=== PATIENT | female | born 1940 | race Caucasian/White ===

== ENCOUNTER 2023-05-31 19:47 | Emergency (ER) | payer MEDICARE, OTHER, SELFPAY ==
[2023-05-31 19:49] VITALS: BP 188/114; BMI 23.3
[2023-05-31 20:26] VITALS: BMI 23.7
[2023-05-31 20:31] VITALS: BP 176/75
[2023-05-31] MEDS: GlucaGen 1 MG IV (20:47)
--- NOTE | 2023-05-31 20:51 | ED.GENMED ---
History of Present Illness
General
Chief Complaint: Foreign Body Ingestion
Source: patient
Exam Limitations: none
Time Seen by Provider: 05/31/23 20:20
Travel History
Have you had any contact with someone who has COVID-19?: No
Do you have any symptoms of coronavirus? Fever > 100 degrees, chills, cough, shortness of breath, sore throat, loss of taste or smell, muscle aches, or headache?: No
History of Present Illness
History of Present Illness:
This is a 82 year old female that comes in with c/o an apple stuck in her throat. States that she was feeling good and had a good day. States that she was going to scrub her floor and she had a piece of apple. States that the apple is stuck in her
throat. States that she tried to drink water and it came right back out. States that she feels that the apple is stuck. States that she is nauseated. States that this has happened to her before and she went to the GI lab. Denies any fever, chills,
chest pain, SOB, abd pain, diarrhea, headache, dizziness.
Past History
Past History
ED Past Medical History: CVA (Left sided weakness, ), HTN, Hypercholesterolemia, [place], Hypothyroidism and Other (Diverticulitis, Ulcers, Iron Def anemia, )
ED Past Surgical History: Gynecological (Hysterectomy, ), Tonsilectomy and Other (Thyroidectomy)
Social History
Tobacco: Non-smoker
Alcohol: Occasional
Drug: None
Personal:
Living: alone
Review of Systems
Review of Systems
All Other Systems: ROS reviewed and negative except as documented in HPI and ROS
Constitutional: Reports no symptoms; Denies fever or chills
EENT: Reports other (apple stuck in her throat. )
Respiratory: Reports no symptoms
Cardiac: Reports no symptoms
ABD/GI: Reports vomiting (Brought water back up); Denies abdominal pain or diarrhea
: Reports no symptoms
Musculoskeletal: Reports no symptoms
Skin: Reports no symptoms
Neurological: Reports no symptoms; Denies dizzy or headache
Psychiatric: Reports no symptoms
Phy Exam
General Physical Exam
General Presentation: no apparent distress
General age: appears stated age
General Skin: warm and dry
General Habitus: elderly
General Mental: alert
General Hydration: dry mucous membranes
ENT Exam
ENT Exam: TM's normal, pharynx normal and neck supple
Eye Exam
Eye Exam: EOMI
Cardiovascular Exam
Cardiovascular Exam: regular rate/rhythm and normal peripheral pulses
Pulmonary Exam
Pulmonary Exam: lungs clear, no respiratory distress, no rales, chest non tender, no crackles, no rhonchi, no wheezing and no cough
Gastrointestinal Exam
Gastrointestinal Exam: normal bowel sounds, non tender, soft, no organomegaly, no pulsatile mass and non distended
Musculoskeletal Exam
Musculoskeletal Exam: full ROM and no edema
Skin Exam
Skin Exam: normal color, warm/dry, no rash and no petechia
Course
Orders/Labs/Results
Orders:
Orders
05/31/23 20:37
Glucagon [GlucaGen] 1 mg IV NOW STA
Vital Signs
Initial and Last Documented VS:
Initial Vital Signs
Temp Pulse Resp BP Pulse Ox
98 F 84 16 188/114 98
05/31/23 19:49 05/31/23 19:49 05/31/23 19:49 05/31/23 19:49 05/31/23 19:49
Last Documented Vital Signs
Temp Pulse Resp BP Pulse Ox
98 F 84 16 176/75 98
05/31/23 19:49 05/31/23 19:49 05/31/23 19:49 05/31/23 20:31 05/31/23 19:49
MDM/Problems Addressed
Differential Diagnosis Includes:
Esophageal irritation, Food impaction
MDM/Problems Addressed:
This is a 82 year old female that comes in with c/o feeling like there is an apple stuck in her throat. States that this has happened before and had to go to the GI lab.
Will try Glucagon at this time as patient is swallowing her saliva and water. If needed will call in the GI specialist.
Back into see patient. Patient states that she thinks it went down she is feeling better. Patient is tolerating water and is swallowing her own saliva. Will discharge home.
Chronic conditions affecting care:
Esophageal stretched in the past
Acute Exacerbation and/or Progression of Chronic Illness:
Esophageal stricture
*Pulse Oximetry
Patient hypoxic: no
*EKG
Interpreted by ED Provider?: NA
Rate: EKG- N/A
*Product Handler Interpretation
Rate: Product Handler- N/A
*Critical Care Note
Total Time (30-74mins, 75-104mins- exclusive of procedures): Not Applicable
ED Attending Note
-
Portions of this chart may have been created with voice recognition software.� Occasional wrong word or��sound alike� substitutions may have occurred due to the inherent limitations of voice recognition software.
Discharge Plan
Departure
Patient Disposition: Home (Routine Discharge)
Date of Disposition: 05/31/23
Time of Disposition: 21:55
Patient with high blood pressure during this ER visit?: Yes
Condition: Good
Covid-19: Not Applicable
Discharge Problem:
Food impaction of esophagus
Instructions: BLOOD PRESSURE
Prescriptions:
No Action
prednisone 20 MG tablet
40 mg PO DAILY Qty: 10 0RF
aliskiren-hydrochlorothiazide [Tekturna HCT] 1 EACH tablet
1 ea PO DAILY Qty: 30 0RF
Activity Restrictions/Additional Instructions:
As discussed, you are able to swallow water and your own saliva. Please chew you food well and increase your water inake. Follow up with the family doctor as needed. IF YOU HAVE ANY OTHER CONCERNS PLEASE RETURN TO THE EMERGENCY ROOM.
Interventions
Interventions:
*Risk Screen - Suicide Last Done: 05/31/23 19:49
*ED COVID-19 Vaccine History Last Done: 05/31/23 19:49
UN-Dtuwzg-Grphdwubhq Assessment Last Done: 05/31/23 20:35
ED- Pulmonary Assessment Last Done: 05/31/23 20:35
ED-EENT Assessment Last Done: 05/31/23 20:35
== END 2023-05-31 22:15 | disposition home or self-care (01) ==
LOC: EMR 19:47
PROVIDERS: EMERGENCY PHYSICIAN Student in an Organized Health Care Education/Training Program; FAMILY PHYSICIAN Family Medicine
DX: T18.128A Food in esophagus causing other injury, initial encounter (principal); W44.F3XA Food entering into or through a natural orifice, initial encounter; I10 Essential (primary) hypertension
CPT/HCPCS: 99284; 96374; J1610

== ENCOUNTER → 2023-06-23 10:15 | Outpatient (REF) | payer MEDICARE, OTHER, SELFPAY | LOC: RAD 10:15 | PROVIDERS: ATTENDING PHYSICIAN Nurse Practitioner Family; FAMILY PHYSICIAN Family Medicine | DX: K57.90 Diverticulosis of intestine, part unspecified, without perforation or abscess without bleeding (principal) | CPT/HCPCS: 74177; Q9967 ==

== ENCOUNTER → 2023-07-15 06:34 | Day surgery (SDC) | payer MEDICARE, OTHER, SELFPAY | LOC: GI 06:34 | PROVIDERS: ATTENDING PHYSICIAN Internal Medicine Gastroenterology | DX: R13.10 Dysphagia, unspecified (principal); K22.2 Esophageal obstruction; K44.9 Diaphragmatic hernia without obstruction or gangrene; K22.9 Disease of esophagus, unspecified | CPT/HCPCS: 43235 ==

== ENCOUNTER → 2023-07-25 09:40 | Outpatient (REF) | payer MEDICARE, OTHER, SELFPAY | LOC: MRI 3T 09:40 | PROVIDERS: ATTENDING PHYSICIAN Nurse Practitioner Family; FAMILY PHYSICIAN Family Medicine | DX: K76.9 Liver disease, unspecified (principal) | CPT/HCPCS: 74183; A9575 ==

== ENCOUNTER → 2023-09-29 07:56 | Outpatient (REF) | payer MEDICARE, OTHER, SELFPAY ==
[2023-09-29 08:48] VITALS: BP 126/65; BP_SYST 67
[2023-09-29 09:08] LABS: Hematocrit 33.9 % (37.0-47.0); Hemoglobin 11.3 g/dL (12.0-16.0); Mean Corp Hgb Conc. 33.3 g/dL (33.0-37.0); Mean Corpuscular Hgb 29.4 pg (27.0-31.0); Mean Corpuscular Volume 88.1 fL (81.0-99.0); Mean Platelet Volume 9.2 fL (7.4-10.4); Platelet Count 248 10^3/uL (130-400); Red Blood Cell Count 3.85 10^6/uL (4.20-5.40); Red Cell Dist. Width 12.9 % (11.5-14.5); White Blood Cell Count 6.2 10^3/uL (4.8-10.8)
[2023-09-29 09:11] LABS: INR 1.02; PT 13.2 Sec (11.4-14.6)
[2023-09-29 18:44] LABS: AFP Male/Tumor Marker 3.15 ng/ml
[2023-09-29 19:16] LABS: CEA 1.99 ng/ml
[2023-09-30 20:09] LABS: CA 19-9 40 U/mL (<=35)
== END ==
LOC: RADI 07:56
PROVIDERS: ATTENDING PHYSICIAN Internal Medicine Gastroenterology; FAMILY PHYSICIAN Family Medicine
DX: K76.89 Other specified diseases of liver (principal); Z53.8 Procedure and treatment not carried out for other reasons
CPT/HCPCS: 36415; 76705; 82105; 82378; 85027; 85610; 86301

== ENCOUNTER → 2023-10-22 10:36 | Outpatient (REF) | payer MEDICARE, OTHER, SELFPAY | LOC: RAD 10:36 | PROVIDERS: ATTENDING PHYSICIAN Internal Medicine Rheumatology; FAMILY PHYSICIAN Family Medicine | DX: M81.0 Age-related osteoporosis without current pathological fracture (principal) | CPT/HCPCS: 77080 ==

== ENCOUNTER → 2023-11-18 11:57 | Outpatient (REF) | payer MEDICARE, OTHER, SELFPAY ==
[2023-11-18 13:33] LABS: ALT (SGPT) 14 U/L (0-35); AST (SGOT) 27 U/L (14-36); Albumin 4.5 g/dl (3.5-5.0); Alkaline Phosphatase 56 U/L (38-126); Blood Urea Nitrogen 21 mg/dl (7-17); Carbon Dioxide 29 mmol/L (22-30); Chloride 99 mmol/L (98-107); Glucose 91 mg/dl (70-99); Potassium 5.5 mmol/L (3.5-5.1); Sodium 138 mmol/L (135-145); Total Bilirubin 0.5 mg/dl (0.2-1.3); eGFR > 60.00
== END ==
LOC: REG 11:57
PROVIDERS: ATTENDING PHYSICIAN Internal Medicine Rheumatology; FAMILY PHYSICIAN Family Medicine
DX: M81.0 Age-related osteoporosis without current pathological fracture (principal); Z51.81 Encounter for therapeutic drug level monitoring
CPT/HCPCS: 36415; 80053

== ENCOUNTER → 2023-12-01 12:22 | Outpatient (REF) | payer MEDICARE, OTHER, SELFPAY ==
[2023-12-01 13:32] LABS: ALT (SGPT) 18 U/L (0-35); AST (SGOT) 28 U/L (14-36); Albumin 4.6 g/dl (3.5-5.0); Alkaline Phosphatase 62 U/L (38-126); Blood Urea Nitrogen 20 mg/dl (7-17); Calcium 9.7 mg/dl (8.4-10.2); Carbon Dioxide 28 mmol/L (22-30); Chloride 98 mmol/L (98-107); Glucose 94 mg/dl (70-99); Potassium 4.8 mmol/L (3.5-5.1); Sodium 140 mmol/L (135-145); Total Bilirubin 0.6 mg/dl (0.2-1.3); Total Protein 7.3 g/dl (6.3-8.2); eGFR > 60.00
== END ==
LOC: REG 12:22
PROVIDERS: ATTENDING PHYSICIAN Internal Medicine Rheumatology; FAMILY PHYSICIAN Family Medicine
DX: M81.0 Age-related osteoporosis without current pathological fracture (principal); Z51.81 Encounter for therapeutic drug level monitoring
CPT/HCPCS: 36415; 80053

== ENCOUNTER → 2024-02-09 13:14 | Outpatient (REF) | payer MEDICARE, OTHER, SELFPAY | LOC: PAVMRI 13:14 | PROVIDERS: ATTENDING PHYSICIAN Transplant Surgery; FAMILY PHYSICIAN Family Medicine | DX: D37.6 Neoplasm of uncertain behavior of liver, gallbladder and bile ducts (principal) | CPT/HCPCS: 74183; A9575 ==

== ENCOUNTER → 2024-05-24 10:59 | Outpatient (REF) | payer MEDICARE, OTHER, SELFPAY ==
[2024-05-24 12:30] LABS: ALT (SGPT) 19 U/L (0-35); AST (SGOT) 26 U/L (14-36); Albumin 4.7 g/dl (3.5-5.0); Alkaline Phosphatase 55 U/L (38-126); Blood Urea Nitrogen 16 mg/dl (7-17); Calcium 9.7 mg/dl (8.4-10.2); Carbon Dioxide 32 mmol/L (22-30); Chloride 97 mmol/L (98-107); Glucose 97 mg/dl (70-99); Potassium 4.8 mmol/L (3.5-5.1); Sodium 135 mmol/L (135-145); Total Bilirubin 0.8 mg/dl (0.2-1.3); Total Protein 7.2 g/dl (6.3-8.2); eGFR > 60.00
[2024-05-25 10:05] LABS: CA 19-9 38 U/mL (<=35)
== END ==
LOC: REG 10:59
PROVIDERS: ATTENDING PHYSICIAN Nurse Practitioner Acute Care; FAMILY PHYSICIAN Family Medicine
DX: C22.1 Intrahepatic bile duct carcinoma (principal)
CPT/HCPCS: 36415; 80053; 86301

== ENCOUNTER → 2024-05-31 16:07 | Outpatient (REF) | payer MEDICARE, OTHER, SELFPAY | LOC: MRI 16:07 | PROVIDERS: ATTENDING PHYSICIAN Nurse Practitioner Acute Care; FAMILY PHYSICIAN Family Medicine | DX: C22.1 Intrahepatic bile duct carcinoma (principal) | CPT/HCPCS: 74183; A9575 ==

== ENCOUNTER 2024-06-30 11:28 | Emergency (ER) | payer MEDICARE, OTHER, SELFPAY ==
[2024-06-30 11:30] VITALS: BP 139/79
[2024-06-30 11:44] VITALS: BP 122/65
[2024-06-30 12:00] VITALS: BP 118/72
[2024-06-30 12:08] VITALS: BMI 25.0
[2024-06-30 12:25] LABS: % Basophils 0.7 % (0-2); % Eosinophils 5.5 % (0-6); % Immature Granulocytes 0.2 % (0-0.5); % Lymphocytes 17.3 % (20.5-51.1); % Neutrophils 68.3 % (42.2-75.2); Absolute Eosinophils 0.3 10^3/uL (0-0.7); Absolute Monocytes 0.5 10^3/uL (0.1-0.6); Absolute Neutrophils 4.1 10^3/uL (1.4-6.5); Hematocrit 33.9 % (37.0-47.0); Hemoglobin 11.3 g/dL (12.0-16.0); Mean Corp Hgb Conc. 33.3 g/dL (33.0-37.0); Mean Corpuscular Hgb 29.2 pg (27.0-31.0); Mean Corpuscular Volume 87.6 fL (81.0-99.0); Mean Platelet Volume 9.8 fL (7.4-10.4); Nucleated Red Blood Cells % 0 %; Platelet Count 186 10^3/uL (130-400); Red Blood Cell Count 3.87 10^6/uL (4.20-5.40); Red Cell Dist. Width 13.2 % (11.5-14.5)
[2024-06-30 12:40] LABS: ALT (SGPT) 16 U/L (0-35); AST (SGOT) 22 U/L (14-36); Albumin 3.6 g/dl (3.5-5.0); Alkaline Phosphatase 48 U/L (38-126); Blood Urea Nitrogen 16 mg/dl (7-17); Calcium 9.2 mg/dl (8.4-10.2); Carbon Dioxide 28 mmol/L (22-30); Chloride 104 mmol/L (98-107); Estimated Creatinine Clearance 55 ml/min; Glucose 92 mg/dl (70-99); Lipase 64 U/L (23-300); Potassium 4.2 mmol/L (3.5-5.1); Sodium 138 mmol/L (135-145); Total Bilirubin 0.6 mg/dl (0.2-1.3); Total Protein 6.1 g/dl (6.3-8.2); eGFR > 60.00
[2024-06-30 12:52] LABS: Troponin I < 0.012 ng/ml
--- NOTE | 2024-06-30 14:49 | ED.GENMED ---
History of Present Illness
<Shefali Peace PA-C - Last Filed: 07/01/24 10:13>
General
Chief Complaint: Abdominal Pain
Source: patient
Exam Limitations: none
Time Seen by Provider: 06/30/24 11:56
Nursing documentation reviewed up to this point in time: agreed with
History of Present Illness
History of Present Illness:
pt is a 83 y/o F
with h/o diverticulitis, htn, hld, ,mi
here with LLQ pain x 2 weeks
she saw her PCP on 06/22 and was called in augmentin which she has been taking
she does'nt think pain is better, in fact is worse and then today had large loose nonbloody bm/diarrhea
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
pt has not had any nausa, vomiting, fever, chills, cp, sob
never had diverticular perf
Past History
<Shefali Peace PA-C - Last Filed: 07/01/24 10:13>
Past History
ED Past Medical History: CVA (Left sided weakness, ), HTN, Hypercholesterolemia, [place], Hypothyroidism and Other (Diverticulitis, Ulcers, Iron Def anemia, )
ED Past Surgical History: Gynecological (Hysterectomy, ), Tonsilectomy and Other (Thyroidectomy)
Social History
Tobacco: Non-smoker
Alcohol: Occasional
Drug: None
Personal:
Living: alone
Review of Systems
<Shefali Peace PA-C - Last Filed: 07/01/24 10:13>
Review of Systems
Allergies reviewed?: Yes
All Other Systems: Not applicable
Phy Exam
<Shefali Peace PA-C - Last Filed: 07/01/24 10:13>
Physical Exam
Physical Exam:
GENERAL: Alert , in no apparent distress
EYE: pupils equal and reactive
NECK: Supple
ENT: o/p clr, mmm.
CARDIAC: Regular rate and rhythm .no edema
LUNGS: Clear breath sounds bilaterally, no acute respiratory distress, no wheezes/rales/rhonchi
ABDOMEN: Soft, mild left lower quad tenderness, no r/g, no cvat, normal bowel sounds
NEUROLOGICAL: Alert and oriented, no focal neuro deficits
SKIN: Warm and dry, skin intact.
MUSCULOSKELETAL: No edema, well perfused.
PSYCH: Normal and appropriate interaction.
Course
<Shefali Peace PA-C - Last Filed: 07/01/24 10:13>
Orders/Labs/Results
Orders:
Orders
06/30/24 11:33
Electrocardiogram (*1) Urgent
Reason for Study: Chest Pain
EKG- Treatment ONCE
06/30/24 12:16
Complete Blood Count/With Diff Urgent
Comprehensive Metabolic Panel Urgent
Lipase Urgent
Troponin I Urgent
06/30/24 12:50
CT Abd/Pel (IV only)-DH only Urgent
Comment:
Reason For Exam: llq pain, diarrhea, divertic;
06/30/24 15:14
COVID-19 Antigen Urgent
Source: Nasal Swab
Urinalysis Reflex To Culture Urgent
Date Specimen was Collected: 06/30/24
Time Specimen was Collected: 15:07
Urine Microscopic Reflex Cult Urgent
Urine Culture Urgent
KAITLYNN Source: U
Specimen Description:
Date Specimen was Collected: 06/30/24
Time Specimen was Collected: 15:07
Abnormal Lab Results
06/30/24 06/30/24
12:16 15:14
RBC 3.87 L 10^6/uL
(4.20-5.40)
Hgb 11.3 L g/dL
(12.0-16.0)
Hct 33.9 L %
(37.0-47.0)
Absolute Lymphs (auto) 1.0 L 10^3/uL
(1.2-3.4)
Lymphocytes % 17.3 L %
(20.5-51.1)
Total Protein 6.1 L g/dl
(6.3-8.2)
Leukocyte Esterase Rfl 3+ A
(Negative)
Urine WBC (Reflex) 26-30 A /HPF
(0-5)
Urine Bacteria (Reflex) Few A
(Negative)
06/30/24 12:16
06/30/24 12:16
Vital Signs
Initial and Last Documented VS:
Initial Vital Signs
Temp Pulse Resp BP Pulse Ox
36.7 C 85 16 139/79 99
06/30/24 11:30 06/30/24 11:30 06/30/24 11:30 06/30/24 11:30 06/30/24 11:30
Last Documented Vital Signs
Temp Pulse Resp BP Pulse Ox
36.7 C 87 16 124/87 98
06/30/24 11:30 06/30/24 16:41 06/30/24 16:41 06/30/24 16:41 06/30/24 16:41
<Ruby Dougherty PA-C - Last Filed: 06/30/24 18:20>
Orders/Labs/Results
Orders:
Orders
06/30/24 11:33
Electrocardiogram (*1) Urgent
Reason for Study: Chest Pain
EKG- Treatment ONCE
06/30/24 12:16
Complete Blood Count/With Diff Urgent
Comprehensive Metabolic Panel Urgent
Lipase Urgent
Troponin I Urgent
06/30/24 12:50
CT Abd/Pel (IV only)-DH only Urgent
Comment:
Reason For Exam: llq pain, diarrhea, divertic;
06/30/24 15:14
COVID-19 Antigen Urgent
Source: Nasal Swab
Urinalysis Reflex To Culture Urgent
Date Specimen was Collected: 06/30/24
Time Specimen was Collected: 15:07
Urine Microscopic Reflex Cult Urgent
Urine Culture Urgent
KAITLYNN Source: U
Specimen Description:
Date Specimen was Collected: 06/30/24
Time Specimen was Collected: 15:07
Abnormal Lab Results
06/30/24 06/30/24
12:16 15:14
RBC 3.87 L 10^6/uL
(4.20-5.40)
Hgb 11.3 L g/dL
(12.0-16.0)
Hct 33.9 L %
(37.0-47.0)
Absolute Lymphs (auto) 1.0 L 10^3/uL
(1.2-3.4)
Lymphocytes % 17.3 L %
(20.5-51.1)
Total Protein 6.1 L g/dl
(6.3-8.2)
Leukocyte Esterase Rfl 3+ A
(Negative)
Urine WBC (Reflex) 26-30 A /HPF
(0-5)
Urine Bacteria (Reflex) Few A
(Negative)
06/30/24 12:16
06/30/24 12:16
Vital Signs
Initial and Last Documented VS:
Initial Vital Signs
Temp Pulse Resp BP Pulse Ox
36.7 C 85 16 139/79 99
06/30/24 11:30 06/30/24 11:30 06/30/24 11:30 06/30/24 11:30 06/30/24 11:30
Last Documented Vital Signs
Temp Pulse Resp BP Pulse Ox
36.7 C 87 16 124/87 98
06/30/24 11:30 06/30/24 16:41 06/30/24 16:41 06/30/24 16:41 06/30/24 16:41
<Shefali Peace PA-C - Last Filed: 07/01/24 10:13>
MDM/Problems Addressed
Differential Diagnosis Includes:
gastroenteritis, diverticulitis, colitis
MDM/Problems Addressed:
83 y/o F
h/o divertic
cholangiocarcinoma
htn, hld, cad
here with LLQ pain x 2 weeks, despite abx since 06/22
diarrhea today, nonbloody, large volume, through her lcothing
she called dr. love her GI and her PCP and was told to come to the Er.
pt is well appearing
nontoxic
mild to mod LLQ tenderness
nromal vitals
wbc [address] shows that her liver lesion is minimally changed from earlier pre-treatment
but no actue findings, no acue diverticulitis, no acute colitis
pt has arthritis L femur
<Ruby Dougherty PA-C - Last Filed: 06/30/24 18:20>
*Critical Care Note
Total Time (30-74mins, 75-104mins- exclusive of procedures): Not Applicable
<Ruby Dougherty PA-C - Last Filed: 06/30/24 18:20>
Update Note
Update Note:
Update: Received patient in signout. COVID-negative. Urine some but equivocal for infection with 3+ leukocyte esterase, 26-30 WBCs, few bacteria. Discussed with patient who does report recent urinary frequency and mild dysuria. Discussed
treating with antibiotics versus holding antibiotics pending culture. After shared decision making�will initiate short course of oral antibiotics for possible UTI pending culture. Advised patient to stop Augmentin. Patient otherwise
well-appearing and stable for discharge home. Strict return precautions discussed. Patient will follow-up with primary care.
ED Attending Note
<Shefali Peace PA-C - Last Filed: 07/01/24 10:13>
-
Portions of this chart may have been created with voice recognition software.� Occasional wrong word or��sound alike� substitutions may have occurred due to the inherent limitations of voice recognition software.
Discharge Plan
Departure
Patient Disposition: Home (Routine Discharge)
Date of Disposition: 06/30/24
Time of Disposition: 16:30
Patient with high blood pressure during this ER visit?: Yes
Condition: Good
Covid-19: Negative COVID-19
Discharge Problem:
Abdominal pain, UTI (urinary tract infection)
Instructions: Urinary tract infection in adults - ED discharge instructions, Abdominal Pain, BLOOD PRESSURE
Prescriptions:
New
ciprofloxacin HCl 500 mg tablet
500 mg PO BID 5 Days Qty: 10 0RF
No Action
nitroglycerin 0.1 mg/hr Patch 24 Hour
1 patch TRANSDERMAL DAILY
atorvastatin 10 mg Tablet
10 mg PO QPM
meloxicam 15 mg Tablet
15 mg PO PRN PRN (Reason: pain)
famotidine 40 mg Tablet
40 mg PO HS
pantoprazole 40 mg Tablet,Delayed Release (Dr/Ec)
40 mg PO DAILY
aspirin 81 mg Tablet
81 mg PO DAILY
metoprolol succinate [Toprol XL] 25 mg Tablet Extended Release 24 Hr
25 mg PO DAILY
fluticasone propionate 50 mcg/actuation [place],Suspension
2 spray INTRANASAL DAILY
acetaminophen [Tylenol Extra Strength] 500 mg Capsule
500 mg PO Q6H PRN (Reason: pain)
levothyroxine 112 mcg Tablet
112 mcg PO DAILY
amlodipine-benazepril 5-40 mg Capsule
1 cap PO QPM
Referrals:
Jonathan Moran MD [Family Provider] - Follow up in 5-7 days
Activity Restrictions/Additional Instructions:
RETURN TO THE EMERGENCY DEPARTMENT WITH ANY FEVERS, PERSISTENT/SEVERE ABDOMINAL PAIN, INTRACTABLE NAUSEA/VOMITING, SEVERE BACK PAIN, SIGNS OF SEVERE DEHYDRATION, INABILITY TO URINATE, OR ANY OTHER CONCERNS
- A prescription was sent to treat a possible UTI. You should take this twice a day for the next 5 days. We will contact you if your culture result is resistant to this antibiotic. At this point as you should discontinue the Augmentin.
-Your COVID test was negative. Your CT scan showed no evidence of acute diverticulitis.
- It is important to stay well-hydrated. Continue to take all of your other medications as prescribed.
- Follow-up with primary care in a few days to ensure that symptoms are improving/for further evaluation.
Monitor your symptoms closely and return to the emergency department with any acute worsening/new symptoms or any other concerns
Interventions
Interventions:
*Risk Screen - Suicide Last Done: 06/30/24 11:30
*General Assessment Last Done: 06/30/24 13:51
*Neglect/Abuse Screening Last Done: 06/30/24 11:30
*ED- Fall Risk Assessment Last Done: 06/30/24 13:51
*ED COVID-19 Vaccine History Last Done: 06/30/24 13:51
*Nursing Disposition Last Done: 06/30/24 16:41
NR-Ucotsc-Cwhvzzftcf Assessment Last Done: 06/30/24 13:53
Discharge Date and Time
Discharge Date/Time: 06/30/24 16:49
Print Language: SINHALA
[2024-06-30 15:25] LABS: Urine Albumin Negative (Neg - Trace); Urine Bilirubin Negative (Negative); Urine Character Clear (Clear); Urine Color Yellow; Urine Glucose Negative (Negative); Urine Ketone Negative (Negative); Urine Leukocyte 3+ (Negative); Urine Nitrite Negative (Negative); Urine Occult Blood Negative (Negative); Urine Specific Gravity 1.015 (<1.030); Urine Urobilinogen Negative (Neg - 1+)
[2024-06-30 15:33] LABS: Urine Bacteria Few (Negative); Urine Red Blood Cell 0-2 /HPF (0-2)
[2024-06-30 15:34] LABS: Urine White Cell 26-30 /HPF (0-5)
[2024-06-30 15:43] LABS: COVID-19 Antigen Negative (Negative)
[2024-06-30 16:41] VITALS: BP 124/87
== END 2024-06-30 16:49 | disposition home or self-care (01) ==
LOC: EMR 11:28
PROVIDERS: Physician Assistant; EMERGENCY PHYSICIAN Emergency Medicine; FAMILY PHYSICIAN Family Medicine
DX: R10.9 Unspecified abdominal pain (principal); N39.0 Urinary tract infection, site not specified; I10 Essential (primary) hypertension; E78.00 Pure hypercholesterolemia, unspecified; E03.9 Hypothyroidism, unspecified; I25.2 Old myocardial infarction; I25.10 Atherosclerotic heart disease of native coronary artery without angina pectoris; C22.1 Intrahepatic bile duct carcinoma; Z86.73 Personal history of transient ischemic attack (TIA), and cerebral infarction without residual deficits; Z90.710 Acquired absence of both cervix and uterus
CPT/HCPCS: 99284; 74177; 80053; 81003; 81015; 83690; 84484; 85025; 87077; 87086; 87811; 93005; Q9967

== ENCOUNTER → 2024-07-06 12:22 | Outpatient (REF) | payer MEDICARE, OTHER, SELFPAY ==
[2024-07-06 13:43] LABS: ALT (SGPT) 17 U/L (0-35); AST (SGOT) 25 U/L (14-36); Albumin 4.2 g/dl (3.5-5.0); Alkaline Phosphatase 54 U/L (38-126); Blood Urea Nitrogen 15 mg/dl (7-17); Calcium 9.5 mg/dl (8.4-10.2); Carbon Dioxide 28 mmol/L (22-30); Chloride 104 mmol/L (98-107); Glucose 96 mg/dl (70-99); Sodium 140 mmol/L (135-145); Total Bilirubin 0.5 mg/dl (0.2-1.3); Total Protein 6.6 g/dl (6.3-8.2); eGFR > 60.00
[2024-07-08 20:45] LABS: CA 19-9 29 U/mL (<=35)
== END ==
LOC: REG 12:22
PROVIDERS: ATTENDING PHYSICIAN Radiology Diagnostic Radiology; FAMILY PHYSICIAN Family Medicine; REFERRING PHYSICIAN Student in an Organized Health Care Education/Training Program
DX: R16.0 Hepatomegaly, not elsewhere classified (principal); C22.1 Intrahepatic bile duct carcinoma
CPT/HCPCS: 36415; 73610; 73630; 80053; 86301

== ENCOUNTER → 2024-07-07 08:40 | Outpatient (REF) | payer MEDICARE, OTHER, SELFPAY | LOC: REG 08:40 | PROVIDERS: ATTENDING PHYSICIAN Internal Medicine Gastroenterology; FAMILY PHYSICIAN Family Medicine | DX: R19.7 Diarrhea, unspecified (principal) | CPT/HCPCS: 83993; 87045; 87046; 87324; 87328; 87329; 87427; 87449 ==

== ENCOUNTER → 2024-07-07 09:00 | Outpatient (REF) | payer MEDICARE, OTHER, SELFPAY | LOC: MRI 09:00 | PROVIDERS: ATTENDING PHYSICIAN Radiology Diagnostic Radiology; FAMILY PHYSICIAN Family Medicine | DX: R16.0 Hepatomegaly, not elsewhere classified (principal); C22.1 Intrahepatic bile duct carcinoma | CPT/HCPCS: 74183; A9575 ==

== ENCOUNTER → 2024-07-20 11:49 | Outpatient (REF) | payer MEDICARE, OTHER, SELFPAY ==
[2024-07-20 13:35] LABS: Urine Albumin Negative (Neg - Trace); Urine Bilirubin Negative (Negative); Urine Character Clear (Clear); Urine Color Yellow; Urine Glucose Negative (Negative); Urine Ketone Negative (Negative); Urine Leukocyte 2+ (Negative); Urine Nitrite Negative (Negative); Urine Occult Blood Negative (Negative); Urine Urobilinogen Negative (Neg - 1+); Urine pH 6.5 (5.0-9.0)
[2024-07-20 14:18] LABS: ALT (SGPT) 17 U/L (0-35); AST (SGOT) 23 U/L (14-36); Albumin 4.2 g/dl (3.5-5.0); Alkaline Phosphatase 54 U/L (38-126); Blood Urea Nitrogen 19 mg/dl (7-17); Calcium 9.5 mg/dl (8.4-10.2); Carbon Dioxide 28 mmol/L (22-30); Chloride 103 mmol/L (98-107); Glucose 92 mg/dl (70-99); Potassium 4.3 mmol/L (3.5-5.1); Sodium 137 mmol/L (135-145); Total Bilirubin 0.8 mg/dl (0.2-1.3); Total Protein 6.9 g/dl (6.3-8.2); eGFR > 60.00
[2024-07-20 14:31] LABS: Vitamin D, 25-OH*** 36.7 ng/mL (30-80)
[2024-07-20 14:44] LABS: Urine Amorphous Seen
[2024-07-20 14:47] LABS: Urine Red Blood Cell 0-2 /HPF (0-2)
[2024-07-20 14:49] LABS: Urine White Cell 16-20 /HPF (0-5)
== END ==
LOC: REG 11:49
PROVIDERS: ATTENDING PHYSICIAN Internal Medicine Rheumatology; FAMILY PHYSICIAN Family Medicine
DX: R82.90 Unspecified abnormal findings in urine (principal); E55.9 Vitamin D deficiency, unspecified; M81.0 Age-related osteoporosis without current pathological fracture
CPT/HCPCS: 36415; 80053; 81003; 81015; 82306; 87086

== ENCOUNTER → 2024-09-28 13:59 | Outpatient (REF) | payer MEDICARE, SELFPAY ==
[2024-09-28 15:45] LABS: ALT (SGPT) 14 U/L (0-35); AST (SGOT) 21 U/L (14-36); Albumin 4.3 g/dl (3.5-5.0); Alkaline Phosphatase 52 U/L (38-126); Blood Urea Nitrogen 18 mg/dl (7-17); Calcium 9.3 mg/dl (8.4-10.2); Carbon Dioxide 28 mmol/L (22-30); Chloride 102 mmol/L (98-107); Glucose 126 mg/dl (70-99); Potassium 4.5 mmol/L (3.5-5.1); Sodium 135 mmol/L (135-145); Total Protein 7.0 g/dl (6.3-8.2); eGFR > 60.00
[2024-10-01 02:09] LABS: CA 19-9 25 U/mL (<=35)
== END ==
LOC: REG 13:59
PROVIDERS: ATTENDING PHYSICIAN Radiology Diagnostic Radiology; FAMILY PHYSICIAN Family Medicine
DX: C22.1 Intrahepatic bile duct carcinoma (principal)
CPT/HCPCS: 36415; 80053; 86301

== ENCOUNTER → 2024-10-21 07:06 | Outpatient (REF) | payer MEDICARE, SELFPAY | LOC: PAVMRI 07:06 | PROVIDERS: ATTENDING PHYSICIAN Radiology Diagnostic Radiology; FAMILY PHYSICIAN Family Medicine | DX: C22.1 Intrahepatic bile duct carcinoma (principal) | CPT/HCPCS: 74183; A9581 ==

== ENCOUNTER → 2024-11-04 13:57 | Outpatient (REF) | payer MEDICARE, SELFPAY ==
[2024-11-04 15:05] LABS: ALT (SGPT) 17 U/L (0-35); AST (SGOT) 26 U/L (14-36); Albumin 4.6 g/dl (3.5-5.0); Alkaline Phosphatase 55 U/L (38-126); Blood Urea Nitrogen 17 mg/dl (7-17); Calcium 9.6 mg/dl (8.4-10.2); Carbon Dioxide 29 mmol/L (22-30); Chloride 99 mmol/L (98-107); Glucose 91 mg/dl (70-99); Potassium 4.8 mmol/L (3.5-5.1); Total Protein 7.3 g/dl (6.3-8.2); eGFR > 60.00
[2024-11-04 15:22] LABS: Sodium 134 mmol/L (135-145)
[2024-11-04 15:43] LABS: Vitamin D, 25-OH*** 40.6 ng/mL (30-80)
== END ==
LOC: REG 13:57
PROVIDERS: ATTENDING PHYSICIAN Internal Medicine Rheumatology; FAMILY PHYSICIAN Family Medicine
DX: E55.9 Vitamin D deficiency, unspecified (principal); M81.0 Age-related osteoporosis without current pathological fracture; E87.5 Hyperkalemia
CPT/HCPCS: 36415; 80053; 82306

== ENCOUNTER → 2024-11-12 06:58 | Outpatient (REF) | payer MEDICARE, SELFPAY ==
[2024-11-12 10:35] LABS: Folate 9.1 ng/ml (2.76-20); Vitamin B12 832 pg/ml (239-931)
[2024-11-14 20:48] LABS: SSA 52 (Ro)(ENA) Ab, IgG 1 AU/mL (0-40); SSA 60 (Ro)(ENA) Ab, IgG 0 AU/mL (0-40); SSB (La)(ENA) Ab, IgG 0 AU/mL (0-40)
[2024-11-14 23:54] LABS: ANA, IgG Reflex to HEp-2 None Detected (None Detected)
== END ==
LOC: MRI 06:58
PROVIDERS: ATTENDING PHYSICIAN Specialist; FAMILY PHYSICIAN Family Medicine
DX: G60.3 Idiopathic progressive neuropathy (principal); D51.8 Other vitamin B12 deficiency anemias
CPT/HCPCS: 36415; 72148; 82607; 82746; 84155; 84165; 86038; 86235; 86430

== ENCOUNTER → 2024-12-16 11:40 | Outpatient (REF) | payer MEDICARE, SELFPAY ==
[2024-12-16 12:38] LABS: ALT (SGPT) 19 U/L (0-35); AST (SGOT) 28 U/L (14-36); Albumin 4.7 g/dl (3.5-5.0); Alkaline Phosphatase 59 U/L (38-126); Blood Urea Nitrogen 19 mg/dl (7-17); Calcium 9.8 mg/dl (8.4-10.2); Carbon Dioxide 27 mmol/L (22-30); Chloride 103 mmol/L (98-107); Glucose 98 mg/dl (70-99); Potassium 4.8 mmol/L (3.5-5.1); Sodium 136 mmol/L (135-145); Total Protein 7.5 g/dl (6.3-8.2); eGFR > 60.00
[2024-12-18 23:16] LABS: CA 19-9 38 U/mL (<=35)
== END ==
LOC: REG 11:40
PROVIDERS: ATTENDING PHYSICIAN Radiology Diagnostic Radiology; FAMILY PHYSICIAN Family Medicine
DX: C22.1 Intrahepatic bile duct carcinoma (principal)
CPT/HCPCS: 36415; 71250; 80053; 86301

== ENCOUNTER → 2024-12-20 07:32 | Outpatient (REF) | payer MEDICARE, SELFPAY | LOC: MRI 3T 07:32 | PROVIDERS: ATTENDING PHYSICIAN Radiology Diagnostic Radiology; FAMILY PHYSICIAN Family Medicine | DX: C22.1 Intrahepatic bile duct carcinoma (principal) | CPT/HCPCS: 74183; A9581 ==

== ENCOUNTER 2025-02-15 07:51 | Emergency (ER) | payer MEDICARE, SELFPAY ==
[2025-02-15 07:53] VITALS: BP 168/101
[2025-02-15 08:21] LABS: Hematocrit 35.2 % (37.0-47.0); Hemoglobin 11.8 g/dL (12.0-16.0); Mean Corp Hgb Conc. 33.5 g/dL (33.0-37.0); Mean Corpuscular Volume 86.5 fL (81.0-99.0); Nucleated Red Blood Cells % 0 %; Platelet Count 225 10^3/uL (130-400); Red Cell Dist. Width 12.7 % (11.5-14.5)
[2025-02-15 08:34] LABS: ALT (SGPT) 18 U/L (0-35); AST (SGOT) 29 U/L (14-36); Albumin 4.4 g/dl (3.5-5.0); Alkaline Phosphatase 55 U/L (38-126); Blood Urea Nitrogen 21 mg/dl (7-17); Calcium 9.3 mg/dl (8.4-10.2); Carbon Dioxide 28 mmol/L (22-30); Chloride 101 mmol/L (98-107); Glucose 108 mg/dl (70-99); Potassium 4.8 mmol/L (3.5-5.1); Sodium 134 mmol/L (135-145); Total Protein 7.1 g/dl (6.3-8.2); eGFR > 60.00
[2025-02-15 08:46] LABS: Troponin I 0.013 ng/ml
[2025-02-15 09:00] VITALS: BP 157/74
--- NOTE | 2025-02-15 09:22 | ED.GENMED ---
History of Present Illness
<Abdulaziz Franco MD, Resident - Last Filed: 02/15/25 11:42>
General
Chief Complaint: Blood Pressure Problem
Source: patient and family
Time Seen by Provider: 02/15/25 08:55
History of Present Illness
History of Present Illness:
Maryjane is an 84-year-old female with past medical history significant for essential hypertension, hyperlipidemia, hypothyroidism, GERD, osteoarthritis, neuropathy, stable cholangiocarcinoma with stable liver lesion who is here for evaluation of high
blood pressure associated with right lower leg numbness.
She noticed her right leg to be numb for last couple of weeks, her knee would give away and she has had several falls. Yesterday night, she fell while she was trying to bring a sandwich for her from the kitchen, her right knee gave away and she
fell, no loss of consciousness, did not hit her head. She is on aspirin but no DOACs. She checked her blood pressure at that time and it was high, she took her medications and fell asleep. She again woke up this morning around 4 AM with headache
and her blood pressure was in 190s/100s, she took her medication fell asleep for a while but then again at 645 she saw her blood pressure high, got worried and called her daughter so they came to the ER.
Patient does have a history of TIA and is on aspirin and statin.
She had a visit a few months ago for numbness of her leg and at that time she was told that was due to issues with her back. Currently she reports no back pain, but occasionally will feel pressure in the right lower back. Denies any fever, chills,
urinary issues, bowel issues and no numbness in the pelvic area
Past History
<Abdulaziz Franco MD, Resident - Last Filed: 02/15/25 11:42>
Past History
ED Past Medical History: CVA (Left sided weakness, ), HTN, Hypercholesterolemia, [place], Hypothyroidism and Other (Diverticulitis, Ulcers, Iron Def anemia, )
ED Past Surgical History: Gynecological (Hysterectomy, ), Tonsilectomy and Other (Thyroidectomy)
Social History
Tobacco: Non-smoker
Alcohol: Occasional
Drug: None
Personal:
Living: alone
Review of Systems
<Abdulaziz Farnco MD, Resident - Last Filed: 02/15/25 11:42>
Review of Systems
All Other Systems: ROS reviewed and negative except as documented in HPI and ROS
Phy Exam
<Abdulaziz Franco MD, Resident - Last Filed: 02/15/25 11:42>
General Physical Exam
General Presentation: well appearing and moderate distress (Due to ongoing symptoms)
General age: appears stated age
General Skin: warm and dry
General Mental: alert
General Hydration: appears well hydrated
Cardiovascular Exam
Cardiovascular Exam: regular rate/rhythm
Pulmonary Exam
Pulmonary Exam: no respiratory distress
Oxygen Status: room air
Neurological Exam
Neurological Exam: alert, oriented x3, no motor deficits, speech normal and other (Numbness of right leg starting from right ankle up to the knees)
Musculoskeletal Exam
Musculoskeletal Exam: full ROM
Course
<Abdulaziz Franco MD, Resident - Last Filed: 02/15/25 11:42>
Orders/Labs/Results
Orders:
Orders
02/15/25 08:03
Complete Blood Count/With Diff Urgent
Comprehensive Metabolic Panel Urgent
Troponin I Urgent
Abnormal Lab Results
02/15/25
08:03
RBC 4.07 L 10^6/uL
(4.20-5.40)
Hgb 11.8 L g/dL
(12.0-16.0)
Hct 35.2 L %
(37.0-47.0)
Absolute Monos (auto) 0.7 H 10^3/uL
(0.1-0.6)
Monocytes % 10.0 H %
(1.7-9.3)
Sodium 134 L mmol/L
(135-145)
BUN 21 H mg/dl
(7-17)
Glucose 108 H mg/dl
(70-99)
02/15/25 08:03
02/15/25 08:03
Vital Signs
Initial and Last Documented VS:
Initial Vital Signs
Temp Pulse Resp BP Pulse Ox
97.8 F 81 20 168/101 97
02/15/25 07:53 02/15/25 07:53 02/15/25 07:53 02/15/25 07:53 02/15/25 07:53
Last Documented Vital Signs
Temp Pulse Resp BP Pulse Ox
97.8 F 81 20 180/74 99
02/15/25 07:53 02/15/25 07:53 02/15/25 07:53 02/15/25 10:00 02/15/25 10:00
<Atif Albert, DO - Last Filed: 02/15/25 10:44>
Orders/Labs/Results
Orders:
Orders
02/15/25 08:03
Complete Blood Count/With Diff Urgent
Comprehensive Metabolic Panel Urgent
Troponin I Urgent
Abnormal Lab Results
02/15/25
08:03
RBC 4.07 L 10^6/uL
(4.20-5.40)
Hgb 11.8 L g/dL
(12.0-16.0)
Hct 35.2 L %
(37.0-47.0)
Absolute Monos (auto) 0.7 H 10^3/uL
(0.1-0.6)
Monocytes % 10.0 H %
(1.7-9.3)
Sodium 134 L mmol/L
(135-145)
BUN 21 H mg/dl
(7-17)
Glucose 108 H mg/dl
(70-99)
02/15/25 08:03
02/15/25 08:03
Vital Signs
Initial and Last Documented VS:
Initial Vital Signs
Temp Pulse Resp BP Pulse Ox
97.8 F 81 20 168/101 97
02/15/25 07:53 02/15/25 07:53 02/15/25 07:53 02/15/25 07:53 02/15/25 07:53
Last Documented Vital Signs
Temp Pulse Resp BP Pulse Ox
97.8 F 81 20 180/74 99
02/15/25 07:53 02/15/25 07:53 02/15/25 07:53 02/15/25 10:00 02/15/25 10:00
<Abdulaziz Franco MD, Resident - Last Filed: 02/15/25 11:42>
MDM/Problems Addressed
Differential Diagnosis Includes:
Neuropathy
Essential hypertension
TIA/stroke
MDM/Problems Addressed:
Patient has fluctuating blood pressure, mostly ranging in 1 50-1 60s
No weakness of any side, clinical findings less consistent with stroke
Right leg numbness, chronic issue, do not want to try gabapentin, looking for intervention-explained that we could provide the referrals and she needs to follow-up with them on outpatient basis-patient and daughter are agreeable, referrals provided
for orthopedic and physical medicine and rehab
Peripheral pulses are palpable bilaterally on both feet
No evidence of leg swelling or findings consistent for a blood clot- yield of ultrasound of peripheral extremities low
Recommended to trial low-dose gabapentin and advised to make appointments with orthopedics and physical medicine
Follow-up with primary care physician
Please return to ER with any new or worsening signs
<Abdulaziz Franco MD, Resident - Last Filed: 02/15/25 11:42>
*Pulse Oximetry
SaO2: 97
Oxygen Mode of Delivery: Room air
Patient hypoxic: no
*Critical Care Note
Total Time (30-74mins, 75-104mins- exclusive of procedures): Not Applicable
ED Attending Note
<Abdulaziz Franco MD, Resident - Last Filed: 02/15/25 11:42>
-
Portions of this chart may have been created with voice recognition software.� Occasional wrong word or��sound alike� substitutions may have occurred due to the inherent limitations of voice recognition software.
<Atif Albert DO - Last Filed: 02/15/25 10:44>
ED Attending Note
Patient seen and examined by attending physician: Yes
I performed a history and physical exam of patient and discussed management with resident, I reviewed resident's note and agree with documented findings and plan of care.: Yes
ED Attending Note:
Seen with resident examined independently 84-year-old female liver cancer, status posttreatment, fibromyalgia, low back pain with numbness into her legs seen by neurology several times no definitive diagnosis per the patient was suggested that she
take gabapentin which she refused, apparently her blood pressure was elevated last night she is having numbness in her right greater than left leg,, here for answers she has no fever she able to move all her extremities, has been on prednisone 1
time with some relief of her symptoms, tells me she cannot take it because she has liver cancer, I did review her MRI looks like she has a spinal stenosis disc disease wonder she would benefit from an epidural steroid injection we will try to have
her follow-up with a specialist in that area
Discharge Plan
Departure
Patient Disposition: Home (Routine Discharge)
Date of Disposition: 02/15/25
Time of Disposition: 11:10
Patient with high blood pressure during this ER visit?: Yes
Condition: Good
Discharge Problem:
Hypertension, Peripheral neuropathy
Instructions: Peripheral neuropathy, BLOOD PRESSURE
Prescriptions:
New
gabapentin 100 mg capsule
100 mg PO HS Qty: 7 0RF
No Action
nitroglycerin 0.1 mg/hr Patch 24 Hour
1 patch TRANSDERMAL DAILY
atorvastatin 10 mg Tablet
10 mg PO QPM
meloxicam 15 mg Tablet
15 mg PO PRN PRN (Reason: pain)
famotidine 40 mg Tablet
40 mg PO HS
pantoprazole 40 mg Tablet,Delayed Release (Dr/Ec)
40 mg PO DAILY
aspirin 81 mg Tablet
81 mg PO DAILY
metoprolol succinate [Toprol XL] 25 mg Tablet Extended Release 24 Hr
25 mg PO DAILY
fluticasone propionate 50 mcg/actuation [place],Suspension
2 spray INTRANASAL DAILY
acetaminophen [Tylenol Extra Strength] 500 mg Capsule
500 mg PO Q6H PRN (Reason: pain)
levothyroxine 112 mcg Tablet
112 mcg PO DAILY
amlodipine-benazepril 5-40 mg Capsule
1 cap PO QPM
ciprofloxacin HCl 500 mg tablet
500 mg PO BID 5 Days Qty: 10 0RF
Referrals:
Mike Coombs DO [Non-Admitting Privileges, Orthopedics] - Next open appointment
Efe Ruff DO [Non-Admitting Privileges, Physical Medicine / Rehab] - Next open appointment
Jonathan Moran MD [Family Provider, Family Practice] - Next open appointment
Activity Restrictions/Additional Instructions:
Use gabapentin at night, it could make you sleepy follow-up with PCP regarding dose titration,
Referrals provided for physical medicine/rehab and orthopedics to discuss neuropathy further
Monitor blood pressure and follow-up with PCP
Consider using a wheelchair for to avoid falls
Please return to ER in case of worrisome signs/symptoms like fever, chills, bladder/bowel issues, weakness of any side.
Interventions
Interventions:
*Risk Screen - Suicide Last Done: 02/15/25 07:53
*General Assessment Last Done: 02/15/25 07:57
*Neglect/Abuse Screening Last Done: 02/15/25 07:57
*ED COVID-19 Vaccine History Last Done: 02/15/25 09:01
*ED Influenza Vaccine History Last Done: 02/15/25 07:57
[facility] Fall Risk Assessment Tool Last Done: 02/15/25 09:01
ED- Cardiac Assessment Last Done: 02/15/25 09:01
ED- Neurological Assessment Last Done: 02/15/25 09:01
ED- Pulmonary Assessment Last Done: 02/15/25 09:01
Discharge Date and Time
Print Language: [email or web address]
[2025-02-15 10:00] VITALS: BP 180/74
[2025-02-15 11:00] VITALS: BP 159/81
== END 2025-02-15 12:10 | disposition home or self-care (01) ==
LOC: EMR 07:51
PROVIDERS: EMERGENCY PHYSICIAN Emergency Medicine; FAMILY PHYSICIAN Family Medicine
DX: I10 Essential (primary) hypertension (principal); G62.9 Polyneuropathy, unspecified; E03.9 Hypothyroidism, unspecified; E78.00 Pure hypercholesterolemia, unspecified; M79.7 Fibromyalgia; Z86.73 Personal history of transient ischemic attack (TIA), and cerebral infarction without residual deficits
CPT/HCPCS: 99283; 80053; 84484; 85025